=== PATIENT | male | born 1940 | race Caucasian/White ===

== ENCOUNTER → 2023-08-21 06:53 | Outpatient (REF) | payer MEDICARE, SELFPAY | LOC: HWRAD 06:53 | PROVIDERS: ATTENDING PHYSICIAN Internal Medicine | DX: M54.50 Low back pain, unspecified (principal) | CPT/HCPCS: 72110 ==

== ENCOUNTER → 2023-11-07 06:01 | Outpatient (REF) | payer MEDICARE, SELFPAY ==
[2023-11-07 10:57] LABS: ALT (SGPT) 36 U/L (0-50); AST (SGOT) 42 U/L (17-59); Albumin 4.4 g/dl (3.5-5.0); Alkaline Phosphatase 96 U/L (38-126); Blood Urea Nitrogen 23 mg/dl (9-20); Calcium 9.5 mg/dl (8.4-10.2); Carbon Dioxide 30 mmol/L (22-30); Chloride 98 mmol/L (98-107); Glucose 115 mg/dl (70-99); HDL Cholesterol 42 mg/dl; LDL Cholesterol, Calculated 60 mg/dl; Potassium 3.7 mmol/L (3.5-5.1); Sodium 135 mmol/L (135-145); Total Bilirubin 1.3 mg/dl (0.2-1.3); Total Cholesterol 121 mg/dl (50-199); Total Protein 6.6 g/dl (6.3-8.2); Triglyceride 98 mg/dl (10-149); Very Low Density Lipoprotein 19 mg/dl (0-30); eGFR > 60.00
== END ==
LOC: HWLAB 06:01
PROVIDERS: ATTENDING PHYSICIAN Internal Medicine Interventional Cardiology; FAMILY PHYSICIAN Internal Medicine
DX: E78.2 Mixed hyperlipidemia (principal)
CPT/HCPCS: 36415; 80053; 80061

== ENCOUNTER → 2023-12-07 06:00 | Outpatient (REF) | payer MEDICARE, SELFPAY ==
[2023-12-07 10:09] LABS: % Basophils 0.3 % (0-2); % Eosinophils 0.4 % (0-6); % Immature Granulocytes 0.5 % (0-0.5); % Lymphocytes 18.8 % (20.5-51.1); % Monocytes 8.4 % (1.7-9.3); % Neutrophils 71.6 % (42.2-75.2); Absolute Eosinophils 0.1 10^3/uL (0-0.7); Absolute Immature Granulocytes 0.1 10^3/uL (0-0.05); Absolute Lymphocytes 2.4 10^3/uL (1.2-3.4); Absolute Monocytes 1.1 10^3/uL (0.1-0.6); Absolute Neutrophils 9.1 10^3/uL (1.4-6.5); Hematocrit 36.8 % (39.0-52.0); Hemoglobin 13.3 g/dL (13.0-18.0); Mean Corp Hgb Conc. 36.1 g/dL (33.0-37.0); Mean Corpuscular Hgb 31.7 pg (27.0-31.0); Mean Corpuscular Volume 87.8 fL (80.0-94.0); Mean Platelet Volume 9.7 fL (7.4-10.4); Nucleated Red Blood Cells % 0 % (-); Platelet Count 230 10^3/uL (130-400); Red Blood Cell Count 4.19 10^6/uL (4.70-6.10); Red Cell Dist. Width 12.3 % (11.5-14.5); White Blood Cell Count 12.8 10^3/uL (4.8-10.8)
[2023-12-07 12:31] LABS: ALT (SGPT) 39 U/L (0-50); AST (SGOT) 36 U/L (17-59); Albumin 4.3 g/dl (3.5-5.0); Alkaline Phosphatase 89 U/L (38-126); Blood Urea Nitrogen 28 mg/dl (9-20); Calcium 9.8 mg/dl (8.4-10.2); Carbon Dioxide 30 mmol/L (22-30); Chloride 99 mmol/L (98-107); Glucose 91 mg/dl (70-99); HDL Cholesterol 56 mg/dl; LDL Cholesterol, Calculated 60 mg/dl; Potassium 3.3 mmol/L (3.5-5.1); Sodium 134 mmol/L (135-145); Total Bilirubin 0.7 mg/dl (0.2-1.3); Total Cholesterol 140 mg/dl (50-199); Total Protein 6.7 g/dl (6.3-8.2); Triglyceride 120 mg/dl (10-149); Very Low Density Lipoprotein 24 mg/dl (0-30); eGFR > 60.00
[2023-12-07 13:00] LABS: PSA, Total - Screen 0.16 ng/ml (0.0-4.0)
== END ==
LOC: HWLAB 06:00
PROVIDERS: ATTENDING PHYSICIAN Internal Medicine
DX: E78.2 Mixed hyperlipidemia (principal); R73.9 Hyperglycemia, unspecified; I10 Essential (primary) hypertension; Z12.5 Encounter for screening for malignant neoplasm of prostate; Z00.00 Encounter for general adult medical examination without abnormal findings
CPT/HCPCS: 36415; 80053; 80061; 85025; G0103

== ENCOUNTER → 2024-01-22 07:04 | Outpatient (REF) | payer MEDICARE, SELFPAY ==
[2024-01-22 09:45] LABS: % Basophils 0.7 % (0-2); % Eosinophils 1.9 % (0-6); % Immature Granulocytes 0.3 % (0-0.5); % Lymphocytes 20.5 % (20.5-51.1); % Neutrophils 68.6 % (42.2-75.2); Absolute Basophils 0.1 10^3/uL (0-0.2); Absolute Eosinophils 0.1 10^3/uL (0-0.7); Absolute Lymphocytes 1.4 10^3/uL (1.2-3.4); Absolute Monocytes 0.6 10^3/uL (0.1-0.6); Absolute Neutrophils 4.8 10^3/uL (1.4-6.5); Hematocrit 38.8 % (39.0-52.0); Hemoglobin 13.6 g/dL (13.0-18.0); Mean Corp Hgb Conc. 35.1 g/dL (33.0-37.0); Mean Corpuscular Hgb 30.9 pg (27.0-31.0); Mean Corpuscular Volume 88.2 fL (80.0-94.0); Mean Platelet Volume 10.3 fL (7.4-10.4); Nucleated Red Blood Cells % 0 % (-); Platelet Count 165 10^3/uL (130-400); Red Cell Dist. Width 12.5 % (11.5-14.5)
[2024-01-22 10:01] LABS: Potassium 4.1 mmol/L (3.5-5.1)
== END ==
LOC: HWLAB 07:04
PROVIDERS: ATTENDING PHYSICIAN Internal Medicine
DX: D72.829 Elevated white blood cell count, unspecified (principal); E87.6 Hypokalemia
CPT/HCPCS: 36415; 84132; 85025

== ENCOUNTER → 2024-03-20 08:40 | Outpatient (REF) | payer MEDICARE, SELFPAY ==
[2024-03-20 12:26] LABS: % Basophils 0.9 % (0-2); % Eosinophils 2.4 % (0-6); % Immature Granulocytes 0.3 % (0-0.5); % Lymphocytes 22.8 % (20.5-51.1); % Monocytes 11.9 % (1.7-9.3); % Neutrophils 61.7 % (42.2-75.2); Absolute Basophils 0.1 10^3/uL (0-0.2); Absolute Eosinophils 0.2 10^3/uL (0-0.7); Absolute Lymphocytes 1.4 10^3/uL (1.2-3.4); Absolute Monocytes 0.8 10^3/uL (0.1-0.6); Absolute Neutrophils 3.9 10^3/uL (1.4-6.5); Hematocrit 40.1 % (39.0-52.0); Mean Corp Hgb Conc. 34.9 g/dL (33.0-37.0); Mean Corpuscular Hgb 31.7 pg (27.0-31.0); Mean Corpuscular Volume 90.9 fL (80.0-94.0); Mean Platelet Volume 9.9 fL (7.4-10.4); Nucleated Red Blood Cells % 0 % (-); Platelet Count 204 10^3/uL (130-400); Red Blood Cell Count 4.41 10^6/uL (4.70-6.10); Red Cell Dist. Width 11.9 % (11.5-14.5); White Blood Cell Count 6.3 10^3/uL (4.8-10.8)
[2024-03-20 12:37] LABS: C-Reactive Protein < 5.00 mg/L (0.0-10.00)
[2024-03-20 13:45] LABS: Erythrocyte Sed Rate 9 mm/hour (0-20)
== END ==
LOC: HWLAB 08:40
PROVIDERS: ATTENDING PHYSICIAN Specialist; FAMILY PHYSICIAN Internal Medicine; REFERRING PHYSICIAN Internal Medicine Interventional Cardiology
DX: M25.462 Effusion, left knee (principal)
CPT/HCPCS: 36415; 85025; 85652; 86140

== ENCOUNTER 2024-04-07 02:25 | Emergency (ER) | payer MEDICARE, SELFPAY ==
[2024-04-07 02:26] VITALS: BP 156/62
[2024-04-07 03:35] LABS: COVID-19 Antigen Negative (Negative)
[2024-04-07 03:45] VITALS: BP 142/78
--- NOTE | 2024-04-07 04:06 | ED.GENMED ---
History of Present Illness
<SHAWNA Camarillo - Last Filed: 04/07/24 04:20>
General
Chief Complaint: Cough
Source: patient and spouse
Exam Limitations: none
Time Seen by Provider: 04/07/24 03:56
Nursing documentation reviewed up to this point in time: agreed with
History of Present Illness
History of Present Illness:
Pt is an 83 y/o M with PMH of GERD, HLD, HTN, CAD, and valvular disorder presenting with his for cough x 1 week. Pt states the cough is worse when lying down and better when sitting up. He states he has occasional sputum production but it is
clear. He taken OTC Mucinex with little to no relief. He admits to associated b/l clear eye discharge with foreign body sensation that has also been present for 1 week. He states it is worse at night and wakes up with matted eyelashes occasionally.
Pt denies fever, chills, night sweats, changes in vision, rhinorrhea, chest pain, SOB, SUMNER, n/v/d, abdominal pain. Pt states he is schedule for L knee revisional surgery this morning at 10:00am and wanted to get checked out before he presents for
surgery.
Past History
<SHAWNA Camarillo - Last Filed: 04/07/24 04:20>
Past History
ED Past Medical History: CAD and Valvular disease
ED Past Surgical History: Cardiac
Social History
Tobacco: Non-smoker
Alcohol: Occasional
Drug: None
Personal:
Living: with family
Review of Systems
<SHAWNA Camarillo - Last Filed: 04/07/24 04:20>
Review of Systems
Allergies reviewed?: Yes
Other source history: family
Constitutional: Denies fever, fatigue, night sweats or chills
EENT: Reports tearing (clear discharge with FB sensation); Denies sore throat or runny nose
Respiratory: Reports cough; Denies trouble breathing
Cardiac: Denies chest pain or palpitations
ABD/GI: Denies abdominal pain, nausea, vomiting or diarrhea
Neurological: Denies dizzy, headache, weakness or numbness
Phy Exam
<Diane Garcia [facility] - Last Filed: 04/07/24 04:20>
General Physical Exam
General Presentation: well appearing and no apparent distress
General age: appears stated age
General Skin: warm and dry
General Habitus: normal and elderly
General Mental: alert
General Hydration: appears well hydrated
Eye Exam
Eye Exam: PERRL and EOMI
Cardiovascular Exam
Cardiovascular Exam: regular rate/rhythm and no murmur
Pulmonary Exam
Pulmonary Exam: lungs clear and no respiratory distress
Gastrointestinal Exam
Gastrointestinal Exam: non tender, soft and non distended
Neurological Exam
Neurological Exam: alert, oriented x3 and speech normal
Course
<Diane Garcia [facility] - Last Filed: 04/07/24 04:20>
Orders/Labs/Results
Orders:
Orders
04/07/24 02:32
COVID-19 Antigen Urgent
Source: Nasal Swab
Influenza A+B Rapid Molecular Urgent
YOON Source: Nasal Swab
Specimen Description:
04/07/24 04:12
CR Chest - 2 Views Urgent
Comment:
Reason For Exam: COUGH X 1 WEEK
04/07/24 04:50
Benzonatate [Tessalon Perles] 200 mg PO NOW STA
04/07/24 05:05
Benzonatate [Tessalon Perles] 100 mg .ROUTE .STK-MED ONE
Vital Signs
Initial and Last Documented VS:
Initial Vital Signs
Temp Pulse Resp BP Pulse Ox
98.0 F 73 16 156/62 99
04/07/24 02:26 04/07/24 02:26 04/07/24 02:26 04/07/24 02:26 04/07/24 02:26
Last Documented Vital Signs
Temp Pulse Resp BP Pulse Ox
98.0 F 73 18 114/55 97
04/07/24 02:26 04/07/24 05:06 04/07/24 05:06 04/07/24 05:06 04/07/24 05:06
<Fabiana Olson DO - Last Filed: 04/07/24 06:27>
Orders/Labs/Results
Orders:
Orders
04/07/24 02:32
COVID-19 Antigen Urgent
Source: Nasal Swab
Influenza A+B Rapid Molecular Urgent
YOON Source: Nasal Swab
Specimen Description:
04/07/24 04:12
CR Chest - 2 Views Urgent
Comment:
Reason For Exam: COUGH X 1 WEEK
04/07/24 04:50
Benzonatate [Tessalon Perles] 200 mg PO NOW STA
04/07/24 05:05
Benzonatate [Tessalon Perles] 100 mg .ROUTE .STK-MED ONE
Vital Signs
Initial and Last Documented VS:
Initial Vital Signs
Temp Pulse Resp BP Pulse Ox
98.0 F 73 16 156/62 99
04/07/24 02:26 04/07/24 02:26 04/07/24 02:26 04/07/24 02:26 04/07/24 02:26
Last Documented Vital Signs
Temp Pulse Resp BP Pulse Ox
98.0 F 73 18 114/55 97
04/07/24 02:26 04/07/24 05:06 04/07/24 05:06 04/07/24 05:06 04/07/24 05:06
<SHAWNA Camarillo - Last Filed: 04/07/24 04:20>
MDM/Problems Addressed
Differential Diagnosis Includes:
allergic conjunctivitis/rxn
<SHAWNA Camarillo - Last Filed: 04/07/24 04:20>
*Critical Care Note
Total Time (30-74mins, 75-104mins- exclusive of procedures): Not Applicable
<Fabiana Olson DO - Last Filed: 04/07/24 06:27>
*Radiology
Radiology exam reviewed: preliminary read by ED provider (Chest x-ray is unremarkable, unchanged from previous 2019.)
*Pulse Oximetry
Patient hypoxic: no
ED Attending Note
<SHAWNA Camarillo - Last Filed: 04/07/24 04:20>
-
Portions of this chart may have been created with voice recognition software.� Occasional wrong word or��sound alike� substitutions may have occurred due to the inherent limitations of voice recognition software.
<Fabiana Olson DO - Last Filed: 04/07/24 06:27>
ED Attending Note
Patient seen and examined by attending physician: Yes
I performed the substantive portion of visit, reviewed & personally made and approve the management plan that is documented in note by myself or JAYJAY.: Yes
ED Attending Note:
This is a quite spry 83-year-old gentleman who has remote history of CAD, hypertension, history of bovine aortic valve replacement with echocardiogram March 2023 showing normal EF, well-seated bovine aortic valve and overall unchanged from
previous.
He has history of osteoarthritis of the knee with history of left total knee replacement over 20 years ago and is scheduled for redo total knee replacement this morning at 10 AM.
He complains of 1 week history of cough, much worse at nighttime after lying down accompanied with bilateral eye itching, irritation and tearing. He has not had a fever nor chills, no chest pain or shortness of breath.
Was evaluated by his chipper machine operator on April 02 and initially prescribed wipes for his eyes. With continued symptoms he called his chipper machine operator on April 04 and was prescribed TobraDex drops which she has been using with
improvement in the eye irritation and tearing. Cough however has persisted much worse at nighttime.
He was concerned that he is scheduled for surgery this morning.
GENERAL: 83-year-old gentleman appears younger than stated age, bright and alert, pleasant, appears in no acute distress. No respiratory distress. Afebrile. Pulse ox 99% on room air.
EYE: anicteric. Conjunctiva clear without injection, no chemosis, no tearing or discharge. No crusting.
NECK: Supple, nontender, no meningismus, no significant adenopathy. No JVD.
ENT: posterior pharynx is without injection, scant clear postnasal drip is noted, oral mucosa is moist. TM clear b/l, nares have moderately boggy pale blue turbinates with mild clear rhinorrhea.
CARDIAC: Regular rate and rhythm. no murmur.
LUNGS: Clear breath sounds bilaterally, no acute respiratory distress, no wheezes/rales/rhonchi
ABDOMEN: Soft, nondistended, without focal tenderness, normoactive BS.
NEUROLOGICAL: Alert and oriented x3, no focal neuro deficits. Gait is steady.
SKIN: Warm and dry, normal color, skin intact. No rash.
MUSCULOSKELETAL: No C/C/E. peripheral pulses are full and equal b/l. No palpable tenderness.
PSYCH: Normal and appropriate interaction.
Patient presents with 1 week history of cough that appears either mild viral URI versus allergic rhinitis in nature.
COVID and influenza testing are negative, as expected.
He has not had a fever, no associated dyspnea on exertion or chest pain. Nothing to suggest CHF nor CAD.
Will check chest x-ray assess for potential occult pneumonia, pleural effusion.
Consideration for laboratory studies but at this point not indicated.
Chest x-ray is unremarkable, unchanged from previous.
As above I suspect mild viral URI versus allergic rhinitis.
Recommend supportive measures, staying well-hydrated, elevate head of bed when sleeping, humidifier or vaporizer at nighttime. Will add a short course of Tessalon for as needed cough. Could consider daily antihistamine for allergic rhinitis.
Although well in appearance and no evidence of pneumonia, I personally am not the one to clear him for his surgical procedure later this morning. This must be determined by anesthesia as well as his orthopedist. Patient aware and will follow up
with his orthopedist later this morning as scheduled.
Discharge Plan
Departure
Patient Disposition: Home (Routine Discharge)
Date of Disposition: 04/07/24
Time of Disposition: 04:52
Patient with high blood pressure during this ER visit?: No
Condition: Good
Discharge Problem:
allergic rhinitis with cough, Upper respiratory infection, viral
Instructions: Viral Upper Respiratory Infection, Adult (DC), Seasonal Allergies ED
Prescriptions:
New
benzonatate 200 mg capsule
200 mg PO TID PRN (Reason: cough) Qty: 20 0RF
No Action
rabeprazole [AcipHex] 20 MG tablet,delayed release (DR/EC)
20 mg PO DAILY
atorvastatin 40 MG tablet
80 mg PO DAILY
benazepril 20 MG tablet
20 mg PO DAILY
Centrum Silver 1 EACH tablet
1 tab PO DAILY
Res Q 1250
5 ml PO DAILY
Patient Comments:
Fish Oil
aspirin 81 MG tablet,delayed release (DR/EC)
81 mg PO DAILY
diphenhydramine HCl [Banophen] 25 MG capsule
25 mg PO HSPRN PRN (Reason: sleep)
chlorthalidone 25 mg tablet
25 mg PO DAILY
potassium chloride 20 mEq Tablet Extended Release
20 meq PO MOWEFR
carvedilol 6.25 MG tablet
12.5 mg PO BID
Rx Instructions:
your coreg dose has decreased to 6.25mg twice daily
amlodipine 5 MG tablet
10 mg PO DAILY
mupirocin 2 % Ointment
1 applic TOPICAL BID
Super Beets
2 PO DAILY
Referrals:
Leopoldo Zhu MD [Family Provider] - Call in 1-3 days for appt
Interventions
Interventions:
*Risk Screen - Suicide Last Done: 04/07/24 05:11
*General Assessment Last Done: 04/07/24 02:26
*Neglect/Abuse Screening Last Done: 04/07/24 02:26
ED- Fall Risk Assessment Last Done: 04/07/24 05:11
*ED COVID-19 Vaccine History Last Done: 04/07/24 02:26
*Nursing Disposition Last Done: 04/07/24 05:11
ED- Pulmonary Assessment Last Done: 04/07/24 03:51
Discharge Date and Time
Discharge Date/Time: 04/07/24 05:12
Print Language: KISWAHILI
[2024-04-07] MEDS: TESSALON PERLES 200 MG PO (05:05)
[2024-04-07 05:06] VITALS: BP 114/55
== END 2024-04-07 05:12 | disposition home or self-care (01) ==
LOC: EMR 02:25
PROVIDERS: EMERGENCY PHYSICIAN Emergency Medicine; FAMILY PHYSICIAN Internal Medicine
DX: J30.9 Allergic rhinitis, unspecified (principal); J06.9 Acute upper respiratory infection, unspecified; E78.5 Hyperlipidemia, unspecified; I10 Essential (primary) hypertension; I25.10 Atherosclerotic heart disease of native coronary artery without angina pectoris; K21.9 Gastro-esophageal reflux disease without esophagitis
CPT/HCPCS: 99284; 71046; 87502; 87811

== ENCOUNTER 2024-04-07 09:57 | Inpatient (IN) | payer MEDICARE, SELFPAY ==
[2024-03-24 12:10] VITALS: BMI 26.2
[2024-03-24 12:56] LABS: Hematocrit 40.9 % (39.0-52.0); Hemoglobin 14.3 g/dL (13.0-18.0); Mean Corpuscular Hgb 31.8 pg (27.0-31.0); Mean Corpuscular Volume 91.1 fL (80.0-94.0); Mean Platelet Volume 9.8 fL (7.4-10.4); Platelet Count 197 10^3/uL (130-400); Red Blood Cell Count 4.49 10^6/uL (4.70-6.10); Red Cell Dist. Width 11.9 % (11.5-14.5); White Blood Cell Count 7.1 10^3/uL (4.8-10.8)
[2024-03-24 13:29] LABS: ALT (SGPT) 32 U/L (0-50); AST (SGOT) 40 U/L (17-59); Albumin 4.8 g/dl (3.5-5.0); Alkaline Phosphatase 110 U/L (38-126); Blood Urea Nitrogen 22 mg/dl (9-20); Calcium 9.6 mg/dl (8.4-10.2); Carbon Dioxide 28 mmol/L (22-30); Chloride 98 mmol/L (98-107); Estimated Creatinine Clearance 72 ml/min; Glucose 102 mg/dl (70-99); Potassium 3.8 mmol/L (3.5-5.1); Sodium 138 mmol/L (135-145); Total Bilirubin 0.7 mg/dl (0.2-1.3); Total Protein 7.3 g/dl (6.3-8.2); eGFR > 60.00
[2024-03-24 13:52] LABS: Glycohemoglobin (HgbA1c) 5.6 % (4.0-5.6)
[2024-04-01 11:56] VITALS: BMI 26.2
--- NOTE | 2024-04-03 10:41 | PTCARENOTE ---
Patients called- stated he has 'cold symptoms' afebrile, COVID test negative- instructed to contact surgeons office
[2024-04-07] VITALS (9 sets, daily range): BP systolic 101–143; BP diastolic 53–77; BMI 26.2
[2024-04-07] MEDS: CELEBREX 200 MG PO (10:36)
[2024-04-07] MEDS: TYLENOL 650 MG PO ×3 (10:37→19:57)
[2024-04-07 11:03] LABS: % Basophils 0.6 % (0-2); % Eosinophils 1.7 % (0-6); % Immature Granulocytes 0.2 % (0-0.5); % Lymphocytes 13.6 % (20.5-51.1); % Monocytes 10.1 % (1.7-9.3); % Neutrophils 73.8 % (42.2-75.2); Absolute Basophils 0.1 10^3/uL (0-0.2); Absolute Eosinophils 0.2 10^3/uL (0-0.7); Absolute Lymphocytes 1.4 10^3/uL (1.2-3.4); Absolute Neutrophils 7.5 10^3/uL (1.4-6.5); Hematocrit 37.8 % (39.0-52.0); Hemoglobin 13.7 g/dL (13.0-18.0); Mean Corp Hgb Conc. 36.2 g/dL (33.0-37.0); Mean Corpuscular Hgb 31.4 pg (27.0-31.0); Mean Corpuscular Volume 86.7 fL (80.0-94.0); Mean Platelet Volume 9.1 fL (7.4-10.4); Nucleated Red Blood Cells % 0 % (-); Platelet Count 222 10^3/uL (130-400); Red Blood Cell Count 4.36 10^6/uL (4.70-6.10); Red Cell Dist. Width 11.6 % (11.5-14.5); White Blood Cell Count 10.2 10^3/uL (4.8-10.8)
--- NOTE | 2024-04-07 13:56 | W.PN.UPDATE ---
Update Note
Progress Note Update
L TKA Revision Dr. Townsend 04/07/24-aseptic
(L TKA 2002, R TKA 2009)
DVT ppx-ASA
-severe/CAD-s/p bioprposthetic AVR and CABG with MEDINA to LAD and HIMANSHU to RCA 10/2011
-monitor on tele
-continue asa+statin uninterrupted
HTN-hx syncope secondary to vasovagal orthosis-+ parameters to BP meds and Midodrine prn w/ IVF
COPD-incentive spirometry-monitor O2 sats
-
--- NOTE | 2024-04-07 14:26 | W.DS.TRANS ---
DC Summary - Seam Finisher
-
Discharge Instructions:
Sleep Apnea Risk Low
Discharge Diagnosis/Procedures L TKA Revision CBB 04/07/24
Diet As tolerated
Activity With Walker
Driving Restrictions No driving
Bathing Restrictions OK to Shower
Other Services PT
Instructions:
Stand-Alone Forms: Total Hip/Knee Replacement D/C
Changes to Home Medications: Yes
Discharge Medications:
DC Medications w/original date entered in [employer]
rabeprazole 20 mg tablet,delayed release (AcipHex) 20 mg PO DAILY 10/31/11
Res Q 1250 5 ml PO DAILY 08/12/19
aspirin 81 mg tablet,delayed release 81 mg PO DAILY 08/12/19
atorvastatin 40 mg tablet 80 mg PO DAILY 08/12/19
benazepril 20 mg tablet 20 mg PO DAILY 08/12/19
diphenhydramine HCl 25 mg capsule (Banophen) 25 mg PO HSPRN PRN sleep 08/12/19
ipvyxlxz-qhw-ggorl acid 0.4 mg-lycopene 300 mcg-lutein 250 mcg tablet (Centrum Silver) 1 tab PO DAILY 08/12/19
Super Beets 2 PO DAILY 04/01/24
amlodipine 5 mg tablet 10 mg PO DAILY 04/01/24
carvedilol 6.25 mg tablet 12.5 mg PO BID 04/01/24
chlorthalidone 25 mg tablet 25 mg PO DAILY 04/01/24
mupirocin 2 % topical ointment 1 applic topical BID 04/01/24
potassium chloride 20 mEq tablet,extended release 20 meq PO MOWEFR 04/01/24
acetaminophen 325 mg tablet (Tylenol) 650 mg (2 x 325 mg) PO QID #1 tab 04/07/24
aspirin 325 mg tablet 325 mg PO DAILY blood clot prevention #1 tab 04/07/24
benzonatate 200 mg capsule 200 mg PO TID PRN cough #20 caps 04/07/24
celecoxib 100 mg capsule 100 mg PO BID Anti-inflammatory #14 caps 04/07/24
dexamethasone 4 mg tablet 4 mg PO BID inflammation #6 tabs 04/07/24
docusate sodium 100 mg capsule (Colace) 100 mg PO BID stool softner #1 cap 04/07/24
magnesium hydroxide 400 mg/5 mL oral suspension (Milk of Magnesia) 30 ml PO HS PRN Constipation #1 mL 04/07/24
ondansetron 4 mg disintegrating tablet 4 mg PO Q6H PRN n/v #20 tabs 04/07/24
oxycodone 5 mg tablet 5 mg PO Q6H PRN 1 tab moderate pain, 2 tabs severe pain #30 tabs 04/07/24
sennosides 8.6 mg tablet (Senokot) 17.2 mg (2 x 8.6 mg) PO BID laxative #2 tabs 04/07/24
Home Medication Changes
acetaminophen 325 mg tablet (Tylenol) 650 mg (2 x 325 mg) PO QID #1 tab 04/07/24
aspirin 325 mg tablet 325 mg PO DAILY blood clot prevention #1 tab 04/07/24
benzonatate 200 mg capsule 200 mg PO TID PRN cough #20 caps 04/07/24
celecoxib 100 mg capsule 100 mg PO BID Anti-inflammatory #14 caps 04/07/24
dexamethasone 4 mg tablet 4 mg PO BID inflammation #6 tabs 04/07/24
docusate sodium 100 mg capsule (Colace) 100 mg PO BID stool softner #1 cap 04/07/24
magnesium hydroxide 400 mg/5 mL oral suspension (Milk of Magnesia) 30 ml PO HS PRN Constipation #1 mL 04/07/24
ondansetron 4 mg disintegrating tablet 4 mg PO Q6H PRN n/v #20 tabs 04/07/24
oxycodone 5 mg tablet 5 mg PO Q6H PRN 1 tab moderate pain, 2 tabs severe pain #30 tabs 04/07/24
sennosides 8.6 mg tablet (Senokot) 17.2 mg (2 x 8.6 mg) PO BID laxative #2 tabs 04/07/24
Pending Results: No
[2024-04-07] MEDS: DILAUDID 0.25 MG IV ×2 (16:47→17:17)
[2024-04-07] MEDS: ROXICODONE 5 MG PO (16:53)
--- NOTE | 2024-04-07 17:53 | PTCARENOTE ---
Pt arrived to 2S in bed. Full assessment completed. L knee with a scant amount of drainage noted. B/L DP weak to palpation, neurovascular assessment otherwise WDL. IVF initiated. Nasal cannula maintained. Bed locked and in the lowest position,
safety maintained. Oriented to room and call lopez. Pt instructed to ring for assistance getting OOB, verbalized understanding. at bedside.
[2024-04-07] MEDS: LIPITOR 80 MG PO (18:13)
[2024-04-07] MEDS: ROXICODONE 10 MG PO (18:13)
[2024-04-07] MEDS: ASPIRIN 325 MG PO (18:13)
[2024-04-07] MEDS: NORMOSOL-R/PLASMALYTE-A 1000 IV (18:13)
[2024-04-07] MEDS: BACTROBAN 2% OINTMENT 1 APPLIC NASAL (19:53)
[2024-04-07] MEDS: TESSALON PERLES 200 MG PO (19:56)
[2024-04-07] MEDS: COLACE 100 MG PO (19:57)
[2024-04-07] MEDS: SENOKOT 17.2 MG PO (19:57)
[2024-04-07] MEDS: COREG 6.25 MG PO (19:57)
[2024-04-07] MEDS: TORADOL 15 MG IV (20:03)
[2024-04-07] MEDS: DECADRON 4 MG IV (20:03)
[2024-04-07] MEDS: ULTRAM 50 MG PO (20:40)
[2024-04-07] MEDS: BENADRYL 25 MG PO (21:28)
[2024-04-07] MEDS: PEPCID 40 MG PO (21:28)
[2024-04-07] MEDS: NEURONTIN 300 MG PO (21:28)
[2024-04-07] MEDS: ANCEF 5 IV (21:28)
[2024-04-08] MEDS: TYLENOL PO (00:07)
[2024-04-08 03:16] VITALS: BP 102/64
[2024-04-08] MEDS: TYLENOL 650 MG PO ×2 (03:59→08:12)
[2024-04-08] MEDS: ANCEF 5 IV (05:16)
[2024-04-08] MEDS: ULTRAM 50 MG PO (05:57)
[2024-04-08] MEDS: DECADRON 4 MG IV (05:57)
[2024-04-08] MEDS: TORADOL 15 MG IV (05:57)
[2024-04-08 08:11] VITALS: BP 147/70
[2024-04-08] MEDS: CELEBREX 200 MG PO (08:12)
[2024-04-08] MEDS: PROTONIX 40 MG PO (08:12)
[2024-04-08] MEDS: LIPITOR 80 MG PO (08:12)
[2024-04-08] MEDS: COLACE 100 MG PO (08:12)
[2024-04-08] MEDS: ASPIRIN 325 MG PO (08:12)
[2024-04-08] MEDS: SENOKOT 17.2 MG PO (08:12)
[2024-04-08] MEDS: BACTROBAN 2% OINTMENT 1 APPLIC NASAL (08:13)
[2024-04-08] MEDS: COREG 6.25 MG PO (08:13)
[2024-04-08] MEDS: TESSALON PERLES 200 MG PO (08:17)
[2024-04-08 09:20] VITALS: BP 103/78; BP 158/76; PULSE 80; O2SAT 96
[2024-04-08 09:48] VITALS: BP 138/72; PULSE 73; O2SAT 94
--- NOTE | 2024-04-08 10:19 | W.PN.ORTHO ---
Today's Communication / Plan
-
d/c
Assessment
.
Distal Motor Intact: Yes
Dressing:
Clean, dry and intact.
Assessment:
L TKA Revision Dr. Townsend 04/07/24-aseptic
(L TKA 2002, R TKA 2009)
DVT ppx-ASA
-severe/CAD-s/p bioprposthetic AVR and CABG with MEDINA to LAD and HIMANSHU to RCA 10/2011
-beatrice on tele
-continue asa+statin uninterrupted
HTN-hx syncope secondary to vasovagal orthosis-+ parameters to BP meds and Midodrine prn w/ IVF-BP acceptable range
COPD-incentive spirometry- O2 sats stable on RA
-
Plan
.
Surgery / Date: L TKA Revision Dr. Townsend 04/07/24
DVT Prophylaxis: Aspirin
Activity:
Out of bed.
PT/OT
Discharge Plan: Home w/ Outpatient PT
Subjective
.
.:
Patient resting comfortably.
Vital Signs and Labs
.
Vital Signs and Labs:
Lab Results
04/07/24 10:36
03/24/24 12:08
Temp Pulse Resp BP Pulse Ox
98.1 F 70 16 147/70 97
04/08/24 08:15 04/08/24 08:11 04/08/24 08:11 04/08/24 08:11 04/08/24 08:11
Non-invasive Hgb result: 13.2
Physical Exam
-
HEENT: No pallor, cyanosis, or jaundice. Throat clear.
NECK: Supple. No JVD.
RESPIRATORY: Lungs clear to auscultation.
CVS: S1, S2 normal. RRR.� No murmur, rub or gallop.
ABDOMEN: Soft, non-tender. No distension. BS+/normal.
EXTREMITIES: strength equal, no calf pain with palpation
TELEHEALTH CASE MANAGER: AOx3. No focal deficits. emblem maker grossly intact
[2024-04-08 11:00] VITALS: BP 122/67
--- NOTE | 2024-04-08 11:01 | CM ---
Patient seen at bedside. Patient completed IMM and signed form placed on chart. Patient states that his plan is to go home with outpatient therapy and declined VN services. Patient lives with in a rancher style home. Patient PCP is
Marko and [facility] [place]. Patient states that he has a walker, crutches and cane at home. Patient eager to go home. CM will continue to follow for discharge planning needs.
Plan; home with outpatient therapy.
== END 2024-04-08 11:40 | disposition home or self-care (01) | DRG 468 ==
LOC: 2 SOUTH 09:57
PROVIDERS: Anesthesiology; ADMITTING PHYSICIAN Specialist; FAMILY PHYSICIAN Internal Medicine; REFERRING PHYSICIAN Internal Medicine Interventional Cardiology
PROC: 0SPD0JZ Removal of Synthetic Substitute from Left Knee Joint, Open Approach (ICD-10-PCS; 2024-04-07)
PROC: 0SRD0J9 Replacement of Left Knee Joint with Synthetic Substitute, Cemented, Open Approach (ICD-10-PCS; 2024-04-07)
DX: T84.033A Mechanical loosening of internal left knee prosthetic joint, initial encounter (principal); I12.9 Hypertensive chronic kidney disease with stage 1 through stage 4 chronic kidney disease, or unspecified chronic kidney disease; N18.2 Chronic kidney disease, stage 2 (mild); J44.9 Chronic obstructive pulmonary disease, unspecified; I25.10 Atherosclerotic heart disease of native coronary artery without angina pectoris; E78.2 Mixed hyperlipidemia; I34.0 Nonrheumatic mitral (valve) insufficiency; Z79.82 Long term (current) use of aspirin; Z79.899 Other long term (current) drug therapy; Z95.3 Presence of xenogenic heart valve; Z95.1 Presence of aortocoronary bypass graft; Z96.651 Presence of right artificial knee joint; Z88.8 Allergy status to other drugs, medicaments and biological substances; Y79.2 Prosthetic and other implants, materials and accessory orthopedic devices associated with adverse incidents
CPT/HCPCS: 36415; 73560; 80053; 83036; 85025; 85027; 86850; 86900; 86901; 87070; 97110; 97116; 97162; 97165; 97530; C1713; C1762; C1776

== ENCOUNTER 2024-04-12 09:51 | Emergency (ER) | payer MEDICARE, SELFPAY ==
[2024-04-12 10:18] VITALS: BP 133/70
--- NOTE | 2024-04-12 11:11 | ED.GENMED ---
History of Present Illness
General
Chief Complaint: Musculo-Skeletal Complaint
Source: patient
Time Seen by Provider: 04/12/24 11:04
History of Present Illness
History of Present Illness:
83yo right hand dominant male presenting for evaluation of right shoulder pain. Patient had a left knee replacement done 4 days ago. He was doing his exercises on the floor last night around 5 PM. He tried to stand up but felt unsteady due to the
knee replacement. He reached out with his right arm and landed on his outstretched hand. No head strike or loss of consciousness. Patient was able to get up after the fall. His only current complaint is right shoulder pain. He denies any
headache, neck pain, back pain, chest pain, abdominal pain. No pain in the left knee. No paresthesias.
Past History
Past History
ED Past Medical History: CAD and Valvular disease
ED Past Surgical History: Cardiac
Social History
Tobacco: Non-smoker
Alcohol: Occasional
Drug: None
Personal:
Living: with family
Phy Exam
General Physical Exam
General Presentation: well appearing and no apparent distress
General age: appears stated age
General Skin: warm and dry
General Habitus: normal
General Mental: alert
ENT Exam
ENT Exam: normocephalic
Additional ENT: No external signs of head trauma. No C spine tenderness.
Eye Exam
Eye Exam: PERRL
Pulmonary Exam
Pulmonary Exam: lungs clear, no respiratory distress, no rales, chest non tender, no crackles and no rhonchi
Gastrointestinal Exam
Gastrointestinal Exam: non tender, soft and non distended
Neurological Exam
Neurological Exam: alert
Kirsten Coma Scale
Eye Opening: Spontaneous
Verbal Response: Oriented
Motor Response: Obeys Commands
GCS Total Score: 15
Musculoskeletal Exam
Musculoskeletal Exam: other (R shoulder: No deformity, swelling, or ecchymosis. ROM normal although patient has pain with abduction. 2+ radial pulse and sensation intact.)
Skin Exam
Skin Exam: normal color and warm/dry
Psychiatric Exam
Psychiatric Exam: normal mood/affect
Course
Orders/Labs/Results
Orders:
Orders
04/12/24 10:21
Shoulder, Right, Trauma [CR Shoulder, Trauma - Right] Urgent
Comment:
Reason For Exam: injury
Vital Signs
Initial and Last Documented VS:
Initial Vital Signs
Temp Pulse Resp BP Pulse Ox
98.8 F 70 16 133/70 98
04/12/24 10:18 04/12/24 10:18 04/12/24 10:18 04/12/24 10:18 04/12/24 10:18
Last Documented Vital Signs
Temp Pulse Resp BP Pulse Ox
98.8 F 70 16 133/70 98
04/12/24 10:18 04/12/24 10:18 04/12/24 10:18 04/12/24 10:18 04/12/24 10:18
MDM/Problems Addressed
Differential Diagnosis Includes:
83yoM here with R shoulder pain after a mechanical fall last night. No deformity noted. Pain elicited with ROM. RUE is neurovascularly intact. No other injuries appreciated on exam. Differential diagnosis includes fracture, rotator cuff injury,
sprain, dislocation
X-rays of R shoulder obtained which are negative for fracture. Moderate degenerative changes noted. Supportive care discussed. Advised f/u with orthopedics and PT. He was discharged in stable condition.
*Critical Care Note
Total Time (30-74mins, 75-104mins- exclusive of procedures): Not Applicable
ED Attending Note
-
Portions of this chart may have been created with voice recognition software.� Occasional wrong word or��sound alike� substitutions may have occurred due to the inherent limitations of voice recognition software.
Discharge Plan
Departure
Patient Disposition: Home (Routine Discharge)
Date of Disposition: 04/12/24
Time of Disposition: 11:12
Patient with high blood pressure during this ER visit?: No
Discharge Problem:
Fall from slip, trip, or stumble, Pain in right shoulder
Instructions: Muscle, joint, and bone pain - Discharge instructions, Fall Prevention for Older Adults
Prescriptions:
No Action
rabeprazole [AcipHex] 20 MG tablet,delayed release (DR/EC)
20 mg PO DAILY
atorvastatin 40 MG tablet
80 mg PO DAILY
benazepril 20 MG tablet
20 mg PO DAILY
Centrum Silver 1 EACH tablet
1 tab PO DAILY
Res Q 1250
5 ml PO DAILY
Patient Comments:
Fish Oil
aspirin 81 MG tablet,delayed release (DR/EC)
81 mg PO DAILY
diphenhydramine HCl [Banophen] 25 MG capsule
25 mg PO HSPRN PRN (Reason: sleep)
chlorthalidone 25 mg tablet
25 mg PO DAILY
potassium chloride 20 mEq Tablet Extended Release
20 meq PO MOWEFR
carvedilol 6.25 MG tablet
12.5 mg PO BID
Rx Instructions:
your coreg dose has decreased to 6.25mg twice daily
amlodipine 5 MG tablet
10 mg PO DAILY
mupirocin 2 % Ointment
1 applic TOPICAL BID
Super Beets
2 PO DAILY
aspirin 325 mg tablet
325 mg PO DAILY Qty: 1 0RF
Rx Instructions:
Take with food
docusate sodium [Colace] 100 mg capsule
100 mg PO BID Qty: 1 0RF
magnesium hydroxide [Milk of Magnesia] 400 mg/5 mL suspension
30 ml PO HS PRN (Reason: Constipation) Qty: 1 0RF
dexamethasone 4 mg tablet
4 mg PO BID Qty: 6 0RF
Rx Instructions:
take with food
post-op use only
celecoxib 100 mg capsule
100 mg PO BID Qty: 14 0RF
Rx Instructions:
take with food
sennosides [Senokot] 8.6 mg tablet
17.2 mg PO BID Qty: 2 0RF
ondansetron [ondansetron] 4 mg tablet,disintegrating
4 mg PO Q6H PRN (Reason: n/v) Qty: 20 0RF
Rx Instructions:
take 1/2h b/f pain med if recurrent nausea
allow to dissolve in mouth w/o water
oxycodone 5 mg tablet
5 mg PO Q6H PRN (Reason: 1 tab moderate pain, 2 tabs severe pain) Qty: 30 0RF
Rx Instructions:
Ongoing therapy
acetaminophen [Tylenol] 325 mg tablet
650 mg PO QID Qty: 1 0RF
Rx Instructions:
SCHEDULED DOSING
benzonatate 200 mg capsule
200 mg PO TID PRN (Reason: cough) Qty: 20 0RF
Referrals:
Wale Townsend MD [Active] -
Activity Restrictions/Additional Instructions:
Apply ice to affected area. Take Tylenol as needed for pain.
Please follow-up with orthopedics and your physical therapist.
Return to the ER with any new or worsening symptoms.
Interventions
Interventions:
*Risk Screen - Suicide Last Done: 04/12/24 10:18
*Neglect/Abuse Screening Last Done: 04/12/24 10:18
*Nursing Disposition Last Done: 04/12/24 11:27
ED-Musculoskeletal Assessment Last Done: 04/12/24 11:27
Discharge Date and Time
Discharge Date/Time: 04/12/24 11:27
Print Language: SUDANESE
== END 2024-04-12 11:27 | disposition home or self-care (01) ==
LOC: EMR 09:51
PROVIDERS: EMERGENCY PHYSICIAN Emergency Medicine; FAMILY PHYSICIAN Internal Medicine
DX: M25.511 Pain in right shoulder (principal); W01.0XXA Fall on same level from slipping, tripping and stumbling without subsequent striking against object, initial encounter; Z96.652 Presence of left artificial knee joint; I25.10 Atherosclerotic heart disease of native coronary artery without angina pectoris
CPT/HCPCS: 99283; 73030

== ENCOUNTER → 2024-04-29 19:42 | Outpatient (REF) | payer MEDICARE, SELFPAY | LOC: MRI 19:42 | PROVIDERS: ATTENDING PHYSICIAN Specialist; FAMILY PHYSICIAN Internal Medicine | DX: M25.511 Pain in right shoulder (principal) | CPT/HCPCS: 73221 ==

== ENCOUNTER → 2024-06-04 06:43 | Outpatient (REF) | payer MEDICARE, SELFPAY ==
[2024-06-04 09:38] LABS: ALT (SGPT) 27 U/L (0-50); AST (SGOT) 32 U/L (17-59); Albumin 4.4 g/dl (3.5-5.0); Alkaline Phosphatase 151 U/L (38-126); Direct Bilirubin 0.4 mg/dl (0.0-0.4); HDL Cholesterol 51 mg/dl; LDL Cholesterol, Calculated 65 mg/dl; Total Cholesterol 140 mg/dl (50-199); Total Protein 6.7 g/dl (6.3-8.2); Triglyceride 123 mg/dl (10-149); Very Low Density Lipoprotein 24 mg/dl (0-30)
== END ==
LOC: HWLAB 06:43
PROVIDERS: ATTENDING PHYSICIAN Internal Medicine
DX: E78.5 Hyperlipidemia, unspecified (principal)
CPT/HCPCS: 36415; 80061; 80076

== ENCOUNTER → 2024-06-09 06:03 | Outpatient (REF) | payer MEDICARE, SELFPAY ==
[2024-06-09 09:36] LABS: % Basophils 0.6 % (0-2); % Eosinophils 3.4 % (0-6); % Immature Granulocytes 0.3 % (0-0.5); % Lymphocytes 21.2 % (20.5-51.1); % Monocytes 10.8 % (1.7-9.3); % Neutrophils 63.7 % (42.2-75.2); Absolute Eosinophils 0.2 10^3/uL (0-0.7); Absolute Lymphocytes 1.4 10^3/uL (1.2-3.4); Absolute Monocytes 0.7 10^3/uL (0.1-0.6); Absolute Neutrophils 4.3 10^3/uL (1.4-6.5); Hematocrit 38.2 % (39.0-52.0); Hemoglobin 13.2 g/dL (13.0-18.0); Mean Corp Hgb Conc. 34.6 g/dL (33.0-37.0); Mean Corpuscular Hgb 30.8 pg (27.0-31.0); Nucleated Red Blood Cells % 0 % (-); Platelet Count 262 10^3/uL (130-400); Red Blood Cell Count 4.29 10^6/uL (4.70-6.10); Red Cell Dist. Width 13.3 % (11.5-14.5); White Blood Cell Count 6.8 10^3/uL (4.8-10.8)
[2024-06-09 09:55] LABS: Blood Urea Nitrogen 23 mg/dl (9-20); Calcium 9.4 mg/dl (8.4-10.2); Carbon Dioxide 32 mmol/L (22-30); Chloride 97 mmol/L (98-107); Glucose 118 mg/dl (70-99); Potassium 3.9 mmol/L (3.5-5.1); Sodium 135 mmol/L (135-145); eGFR > 60.00
== END ==
LOC: HWLAB 06:03
PROVIDERS: ATTENDING PHYSICIAN Specialist; FAMILY PHYSICIAN Internal Medicine
DX: Z01.818 Encounter for other preprocedural examination (principal)
CPT/HCPCS: 36415; 80048; 85025

== ENCOUNTER 2024-06-20 06:21 | Day surgery (SDC) | payer MEDICARE, SELFPAY ==
[2024-06-20] VITALS (8 sets, daily range): BP systolic 108–128; BP diastolic 44–67; BMI 26.5
[2024-06-20] MEDS: CELEBREX 200 MG PO (07:54)
[2024-06-20] MEDS: TYLENOL 1000 MG PO (07:54)
[2024-06-20] MEDS: NORMOSOL-R/PLASMALYTE-A 1000 IV (07:55)
== END 2024-06-20 11:50 | disposition home or self-care (01) ==
LOC: SDS 06:21
PROVIDERS: ATTENDING PHYSICIAN Specialist; FAMILY PHYSICIAN Family Medicine
DX: M75.121 Complete rotator cuff tear or rupture of right shoulder, not specified as traumatic (principal); M19.011 Primary osteoarthritis, right shoulder; Z87.39 Personal history of other diseases of the musculoskeletal system and connective tissue
CPT/HCPCS: 29827; C1713

== ENCOUNTER → 2024-08-11 10:22 | Outpatient (REF) | payer MEDICARE, SELFPAY ==
[2024-08-11 11:40] LABS: Urine Albumin Negative (Neg - Trace); Urine Bilirubin Negative (Negative); Urine Character Clear (Clear); Urine Color Yellow; Urine Glucose Negative (Negative); Urine Ketone Negative (Negative); Urine Leukocyte Negative (Negative); Urine Nitrite Negative (Negative); Urine Occult Blood Negative (Negative); Urine Specific Gravity 1.005 (<1.030); Urine Urobilinogen Negative (Neg - 1+)
[2024-08-12 19:17] LABS: PSA Total 0.1 ng/mL (0.0-4.0)
== END ==
LOC: HWLAB 10:22
PROVIDERS: ATTENDING PHYSICIAN Internal Medicine
DX: R35.1 Nocturia (principal)
CPT/HCPCS: 36415; 81003; 84153; 84154

== ENCOUNTER → 2024-10-22 07:26 | Outpatient (REF) | payer MEDICARE, SELFPAY | LOC: MRI 3T 07:26 | PROVIDERS: ATTENDING PHYSICIAN Physical Medicine & Rehabilitation; FAMILY PHYSICIAN Internal Medicine | DX: M54.16 Radiculopathy, lumbar region (principal) | CPT/HCPCS: 72148 ==

== ENCOUNTER → 2024-10-28 10:46 | Outpatient (REF) | payer MEDICARE, SELFPAY | LOC: HWRCS 10:46 | PROVIDERS: ATTENDING PHYSICIAN Internal Medicine Interventional Cardiology; FAMILY PHYSICIAN Internal Medicine | DX: Z95.2 Presence of prosthetic heart valve (principal); I34.0 Nonrheumatic mitral (valve) insufficiency | CPT/HCPCS: 93306 ==

== ENCOUNTER → 2024-12-12 06:04 | Outpatient (REF) | payer MEDICARE, SELFPAY ==
[2024-12-12 10:09] LABS: Hematocrit 37.1 % (39.0-52.0); Hemoglobin 13.0 g/dL (13.0-18.0); Mean Corp Hgb Conc. 35.0 g/dL (33.0-37.0); Mean Corpuscular Volume 88.5 fL (80.0-94.0); Nucleated Red Blood Cells % 0 % (-); Platelet Count 193 10^3/uL (130-400); Red Cell Dist. Width 12.8 % (11.5-14.5)
[2024-12-12 10:14] LABS: ALT (SGPT) 40 U/L (0-50); AST (SGOT) 40 U/L (17-59); Albumin 4.7 g/dl (3.5-5.0); Alkaline Phosphatase 117 U/L (38-126); Blood Urea Nitrogen 24 mg/dl (9-20); Calcium 9.3 mg/dl (8.4-10.2); Carbon Dioxide 28 mmol/L (22-30); Chloride 99 mmol/L (98-107); Glucose 102 mg/dl (70-99); HDL Cholesterol 44 mg/dl; LDL Cholesterol, Calculated 62 mg/dl; Potassium 4.0 mmol/L (3.5-5.1); Sodium 135 mmol/L (135-145); Total Protein 6.9 g/dl (6.3-8.2); Very Low Density Lipoprotein 17 mg/dl (0-30); eGFR > 60.00
== END ==
LOC: HWLAB 06:04
PROVIDERS: ATTENDING PHYSICIAN Internal Medicine
DX: E78.5 Hyperlipidemia, unspecified (principal); I10 Essential (primary) hypertension; E66.3 Overweight; R35.1 Nocturia
CPT/HCPCS: 36415; 80053; 80061; 84153; 84154; 85025